=== PATIENT | male | born 1955 | race Native Hawaiian/Other Pacific Islander ===

== ENCOUNTER 2017-08-23 12:45 | Outpatient (CLI) | payer BC | END 2017-08-23 19:57 | disposition home or self-care (01) | LOC: RAD 12:45 | DX: J40 Bronchitis, not specified as acute or chronic (principal) ==

== ENCOUNTER 2019-06-26 09:17 | Outpatient (CLI) | payer BC | END 2019-06-26 20:10 | disposition home or self-care (01) | LOC: US 09:17 | DX: Z13.6 Encounter for screening for cardiovascular disorders (principal) ==